=== PATIENT | female | born 1990 | race Caucasian/White ===

== ENCOUNTER → 2016-05-25 | Outpatient (CLI) | payer MEDICAID ==
--- NOTE | 2016-05-26 09:21 | ECHOF ---
Referral Reason:R00.2 Palpitations MEASUREMENTS -------- HEIGHT: 165.1 cm WEIGHT: 57.6 kg BP: 119/66 RVIDd: 2.6 cm (< 3.3) IVSd: 0.8 cm (0.6 - 1.1) LVIDd: 3.7 cm (3.9 - 5.3) LVPWd: 0.6 cm (0.6 - 1.1) IVSs: 1.1 cm LVIDs: 2.3 cm LVPWs: 1.0 cm LA Diam: 2.3 cm (2.7 - 3.8) LAESV Index (A-L): 16.88 ml/m Ao Diam: 3.0 cm (2.0 - 3.7) AV Cusp: 1.3 cm (1.5 - 2.6) LA Diam: 1.6 cm (2.7 - 3.8) MV EXCURSION: 21.150 mm (> 18.000) MV EF SLOPE: 216 mm/s (70 - 150) EPSS: 0.3 cm MV E David: 1.07 m/s MV DecT: 223 ms MV A David: 0.55 m/s MV E/A Ratio: 1.97 RAP: 5.00 mmHg RVSP: 17.37 mmHg FINDINGS -------- Sinus rhythm. This was a technically good study. Left ventricular wall thickness is normal. Overall left ventricular systolic function is normal with, an EF between 55 - 60 %. The right ventricle is normal in size. Normal LA size by volume 22+/-6 ml/m2. The right atrium is normal in size. Aortic valve is trileaflet and is mildly thickened. The mitral valve leaflets are mildly thickened. Mild mitral annular calcification present. Mild tricuspid regurgitation present. Right ventricular systolic pressure is normal at < 35 mmHg. Pulmonic valve appears structurally normal. The aortic root size is normal. Normal inferior vena cava with normal inspiratory collapse consistent with estimated right atrial pressure of 5 mmHg. There is no pericardial effusion. CONCLUSIONS -------- 1. Sinus rhythm. 2. Mild mitral annular calcification present. 3. Mild tricuspid regurgitation present. 4. Right ventricular systolic pressure is normal at < 35 mmHg. 5. Pulmonic valve appears structurally normal. 6. The aortic root size is normal. 7. Normal inferior vena cava with normal inspiratory collapse consistent with estimated right atrial pressure of 5 mmHg. 8. There is no pericardial effusion. 9. This was a technically good study. 10. Left ventricular wall thickness is normal. 11. Overall left ventricular systolic function is normal with, an EF between 55 - 60 %. 12. The right ventricle is normal in size. 13. Normal LA size by volume 22+/-6 ml/m2. 14. The right atrium is normal in size. 15. Aortic valve is trileaflet and is mildly thickened. 16. The mitral valve leaflets are mildly thickened. LEATHER COATER: Josephine Moss RDCS
== END ==
LOC: RADECHMAIN 11:28
PROVIDERS: ATTEND Family Medicine
DX: R00.2 Palpitations (principal)
CPT/HCPCS: 93306

== ENCOUNTER → 2017-06-07 | Outpatient (CLI) | payer MEDICAID ==
--- NOTE | 2017-06-07 15:32 | CONS ---
CONSULTATION This is a consultation note for sleep paralysis. This is a very pleasant 26-year-old female patient, who has been experiencing episodes of sleep paralysis. This episode started the beginning of the year and she was having approximately 1 or 2 episodes a week. The frequency has been varying. Initially were quite frequent and it seems that her episodes of sleep paralysis have been improving and becoming less frequent. Note that the patient is a very stressful and busy schedule. She is working 2 jobs. She started working 2 jobs as of January of 2017. She works midnights at [employer] 2 days a week and she also works daytime job at the [employer] 2 days a week. On the days that she does night work she goes to bed around 8 in the morning and she gets up at 3 to 4 pm and on the days that she works days she goes to bed around 9:00 pm and she wakes up at 9 a.m. in the morning. No history of anxiety. No history of panic attacks. No history of depression. No history of substance abuse. No hallucinations. No cataplexy. No hypersomnia or sleepiness during the day and she is able to perform activities of day- to-day life without having to fall asleep. The patient denies having any vivid dreams. However the patient denies having any vivid dreams. She has no snoring. She has no other personal or family history of narcolepsy. Typically these episodes happen in the middle of the night as the patient wakes up, and she is unable to move. These are short episodes lasting somewhere between 20 seconds up to a minute or 2. She tried to go back to sleep and when she wakes up she is able to move her body parts. No history of any panic disorder. No history of any PTSD. No other complaints otherwise for now. She does have significant amount of mental stress and obviously her sleep schedule has been quite irregular working at 2 separate jobs as mentioned. Note that the patient described these episodes to be quite scary. Initially she was very much frightened during these episodes knowing that she was powerlessness and she was unable to move and for now she has been able to cope with these episodes and as she understands the situation she is feeling more comfortable and less stressed. As mentioned there is no associated panic disorder. PAST MEDICAL HISTORY: Negative. PAST SURGICAL HISTORY: Negative. DRUG ALLERGIES: Not known. MEDICATIONS: None. SOCIAL HISTORY: Nonsmoker. No history of alcohol. No history of IV drugs. FAMILY HISTORY: The patient lives with significant other. She takes care of her 2-year-old child at home. She works 2 jobs. REVIEW OF SYSTEMS: 12-point review of system was done. Positive findings are mentioned above in the history of present illness. No history of any grinding of the teeth. No restlessness in lower extremities. No sleepwalking. No anxiety or panic attacks. No depression. No heartburn. No waking up in the middle of night choking or gasping for air. No excessive fatigue or sleepiness during the day. No snoring. BP is 131/65, pulse 84, respirations 16, temperature 98, saturation 98% on room air. BMI 22.2, weight is 134, height is 5 feet 5 inches and neck size 13.5 inches. GENERAL APPEARANCE: Calm comfortable. Head is atraumatic, normocephalic. NECK: Supple. There is no JVD. No goiter or neck masses. LUNGS: Clear to auscultation. HEART: Sounds regular rhythm. Normal S1, S2. No S3. No murmurs. ABDOMEN: Soft, nontender. EXTREMITIES: No edema. No cyanosis or clubbing. IMPRESSION: Isolated sleep paralysis. The patient is having episodes of sleep paralysis, at least once a month but less than once a week. The patient reports inability to move and speak during these episodes without any significant hallucinations. These episodes have been extremely distressing initially and they are becoming gradually less stressful and less frequent. No history of underlying psychiatric disorder. No indication for underlying obstructive sleep apnea or narcolepsy as the patient has no hallucinations, cataplexy or increased daytime hypersomnolence or sleepiness. These episodes of sleep paralysis are most likely related to the patient's insufficient sleep and irregular sleep cycle/irregular sleep schedule as the patient is sleeping in various hours due to her jobs where she has to work night shifts and morning shifts. PLAN: No obvious comorbidities associated with sleep paralysis in this patient. Doubt narcolepsy or anxiety or panic or any other psychiatric disorder. Furthermore there was no reported substance abuse. The patient needs to regulate the sleep schedule. Obviously working 2 different jobs at different schedules will exacerbate sleep paralysis and this needs to be dealt with and the patient also needs to implement good sleep hygiene measures. No need for any medication treatment for now as long as the episodes are improving with sleep hygiene measures. One consideration is to add a SSRI or tricyclic antidepressant if these episodes become quite frequent in the future. Appropriate literature was given. The patient was reassured. No need for any polysomnogram. We will continue to follow in the future if needed. MMODL / IJN: [id number] /
== END | disposition home or self-care (01) ==
LOC: SLEEP 13:31
PROVIDERS: ATTEND Internal Medicine Critical Care Medicine
DX: G47.53 Recurrent isolated sleep paralysis (principal)
CPT/HCPCS: 99211

== ENCOUNTER → 2018-02-24 | Outpatient (CLI) | payer MEDICAID | END | disposition home or self-care (01) | LOC: LABWHC1 09:34 | PROVIDERS: ATTEND Obstetrics & Gynecology | DX: O26.899 Other specified pregnancy related conditions, unspecified trimester (principal); Z3A.00 Weeks of gestation of pregnancy not specified | CPT/HCPCS: 36415; 82239 ==

== ENCOUNTER → 2018-03-15 | Outpatient (CLI) | payer MEDICAID | LOC: LABWHC1 09:49 | PROVIDERS: ATTEND Obstetrics & Gynecology | DX: O26.613 Liver and biliary tract disorders in pregnancy, third trimester (principal); Z3A.00 Weeks of gestation of pregnancy not specified | CPT/HCPCS: 36415; 82239 ==

== ENCOUNTER 2018-03-23 16:00 | Outpatient (CLI) | payer MEDICAID ==
[2018-03-23] MEDS ORDERED: BETAMET ACET-BETAMETH SOD PHOS 6 MG/ML VIAL IM SCH (16:15)
[2018-03-23 17:35] VITALS: BP 121/74; PULSE 85; RESP 16
== END 2018-03-23 16:32 | disposition home or self-care (01) ==
LOC: FBPOP 16:00
PROVIDERS: ATTEND Obstetrics & Gynecology
DX: O60.03 Preterm labor without delivery, third trimester (principal); O26.613 Liver and biliary tract disorders in pregnancy, third trimester; K83.1 Obstruction of bile duct; Z3A.35 35 weeks gestation of pregnancy
CPT/HCPCS: 59025; 96372; J0702

== ENCOUNTER 2018-03-23 21:00 | Inpatient (IN) | payer MEDICAID ==
[2018-03-24] MEDS ORDERED: METHYLERGONOVINE 0.2 MG/ML 1 ML AMP IM PRN (00:22)
[2018-03-24] MEDS ORDERED: LIDOCAINE 0.5% (PF) 5 MG/ML (50 ML SDV) SQ PRN (00:22)
[2018-03-24] MEDS ORDERED: CARBOPROST TROMETHAMINE 250 MCG/ML 1 ML AMP IM PRN (00:22)
[2018-03-24] MEDS ORDERED: TERBUTALINE 1 MG/ML VIAL SQ PRN (00:22)
[2018-03-24] MEDS ORDERED: OXYTOCIN 10 UNIT/ML 1 ML VIAL IM PRN (00:22)
[2018-03-24] MEDS ORDERED: BUTORPHANOL 1 MG/ML 1 ML VIAL IV PRN (00:30)
[2018-03-24 03:26] VITALS: BMI 25.2
[2018-03-24] MEDS: LACTATED RINGERS 1,000 ML IV SCH ×3 (03:32→07:36)
[2018-03-24] MEDS: OXYTOCIN 20 UNITS/1000 ML NS 1,000 ML IV SCH ×2 (03:32→06:35)
[2018-03-24 06:37] LABS: Basophils % (A) 0 %; Eosinophils # (A) 0.1 k/uL (0-0.7); Eosinophils % (A) 1 %; HCT 34.4 % (34.0-46.0); HGB 11.4 gm/dL (11.4-16.0); Lymphocytes # (A) 1.1 k/uL (1.0-4.8); Lymphocytes % (A) 11 %; MCH 29.2 pg (25.0-35.0); MCHC 33.2 g/dL (31.0-37.0); Monocytes # (A) 0.5 k/uL (0-1.0); Monocytes % (A) 5 %; Neutrophils # (A) 8.1 k/uL (1.3-7.7); Neutrophils % (A) 82 %; Platelet Count 231 k/uL (150-450); WBC 9.8 k/uL (3.8-10.6)
--- NOTE | 2018-03-24 07:45 | P.HPOB ---
History of Present Illness H&P Date: 03/24/18 This is a 27-year-old white female 2 para 1001 EDC 04/21/2018 at 36 weeks' gestation. Patient presents today for induction for cholestasis of . She was actually seen in the triage area last night, had advanced cervical dilatation of 5-6 cm, and therefore was admitted. She had irregular contractions through the night. Oxytocin was started this morning and she is in early active labor. heart tones are reassuring, in the 140s baseline with frequent accelerations consistent with reactive NST. Biophysical profile in the office 2 days ago was 10/10. Reactive NST last night and currently. Obstetric history is significant for blood type B negative, group B strep cultures negative. Gonorrhea and chlamydia cultures, Pap smear urine culture, hepatitis B surface antigen all negative. Rubella status immune. One-hour Glucola 128. History significant for fasting bile acids of 20, repeat 76. Discussion with Dr. Cook at [facility] was performed, suggestion was delivery at 36 weeks secondary to the increased risk of intrauterine demise. Past medical history is significant for benign palpitations. Past surgical history colposcopy 2014 for low-grade RAYMUNDO. Current medications vitamins daily, Actigall 300 mg twice daily. Family history significant for prostate cancer, diabetes, hyperlipidemia, and hypothyroidism. Social history patient is , her Jonathan is present. 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 She has never been a smoker. She denies alcohol or drug use. On exam this is a pleasant white female, she is 5 foot 4 inches, 152 pounds, blood pressure 136/77, patient is afebrile. The general physical exam is within normal limits. Cervix is 7 cm the time of this dictation, 80% effaced, - 1 station, vertex presentation. Artificial amniorrhexis reveals clear fluid. heart rate is reassuring, 140s baseline with frequent accelerations, category 1. Uterine contractions are occurring approximately every 3-4 minutes apart of moderate intensity. Impression: 36 week intrauterine , active hepatic cholestasis of with recommendation from maternal medicine for delivery at 36 weeks. Betamethasone received 2. All signs at this time reassuring. Plan continue close maternal and surveillance. Epidural is being placed at this time per patient's request. Anticipate normal spontaneous vaginal delivery. Review of Systems Constitutional: Reports as per HPI Past Medical History Past Medical History: No Reported History History of Any Multi-Drug Resistant Organisms: None Reported Past Surgical History: No Surgical Hx Reported Additional Past Surgical History / Comment(s): [place] Teeth Extraction Past Anesthesia/Blood Transfusion Reactions: No Reported Reaction Past Psychological History: No Psychological Hx Reported Smoking Status: Never smoker Past Alcohol Use History: None Reported Past Drug Use History: None Reported - Past Family History Mother History Unknown: Yes Family Medical History: Thyroid Disorder Additional Family Medical History / Comment(s): Hypothyroid-Had part of her thyroid removed Medications and Allergies Home Medications Medication Instructions Recorded Confirmed Type Vit No.124/Iron/Folic 1 each PO DAILY 10/28/14 03/23/18 History [ Vitamin Tablet] Ranitidine HCl [Zantac] 150 mg PO BID 10/28/14 03/23/18 History Ursodiol [Actigall] 300 mg PO BID 03/23/18 03/23/18 History Allergies Allergy/AdvReac Type Severity Reaction Status Date / Time No Known Allergies Allergy Verified 03/23/18 16:05 Exam Vital Signs Temp Pulse Resp BP Pulse Ox 03/24/18 02:30 97.8 F 77 16 125/85 99 03/23/18 21:25 99.4 F 91 16 136/77 99 Intake and Output 03/23/18 03/24/18 03/24/18 22:59 06:59 14:59 Other: # Voids 2 Weight 68.946 kg see dictation Results Result Diagrams: 03/24/18 06:20 Abnormal Lab Results - Last 24 Hours (Table) 03/24/18 Range/Units 06:20 Neutrophils # 8.1 H (1.3-7.7) k/uL Assessment and Plan Assessment: 36 week intrauterine , betamethasone received 2, early active labor. Cholestasis of noted, with strong recommendation from maternal medicine for delivery at 36 weeks. All signs currently reassuring, clear fluid , reactive NST. Plan: Continue close maternal and surveillance. Epidural being placed per patient's request at this time. Anticipate normal spontaneous vaginal delivery. nursery and pediatricians aware. Time with Patient: Greater than 30
[2018-03-24] MEDS ORDERED: ROPIVACAINE 100 MG, fentaNYL (PF) 200 MCG in SODIUM CHLORIDE 0.9% 76 ML EPIDURAL ONE (09:52)
[2018-03-24] MEDS ORDERED: SILVER NITRATE APPLICATOR 1 EACH STICK..EA. TOPICAL STA (10:20)
[2018-03-24] MEDS ORDERED: WITCH HAZEL 1 EACH MED..PAD TOPICAL PRN (10:58)
[2018-03-24] MEDS ORDERED: diphenhydrAMINE 50 MG/ML 1 ML VIAL IVP PRN ×2 (10:58)
[2018-03-24] MEDS ORDERED: LANOLIN CREAM 5 GM TUBE TOPICAL PRN (10:58)
[2018-03-24] MEDS ORDERED: diphenhydrAMINE 50 MG CAP PO PRN (10:58)
[2018-03-24] MEDS ORDERED: ZOLPIDEM 5 MG TAB PO PRN (10:58)
[2018-03-24] MEDS ORDERED: BENZOCAINE/MENTHOL SPRAY 1 GM/SPRAY AEROSOL TOPICAL PRN (10:58)
[2018-03-24] MEDS ORDERED: HYDROCORTISONE 2.5% RECTAL CREAM 30 GM TUBE RECTAL PRN (10:58)
[2018-03-24] MEDS ORDERED: diphenhydrAMINE ELIXIR 25 MG/10 ML CUP PO PRN (10:58)
[2018-03-24] MEDS ORDERED: SIMETHICONE 80 MG CHEWABLE PO PRN (10:58)
[2018-03-24] MEDS ORDERED: diphenhydrAMINE 25 MG CAP PO PRN (10:58)
--- NOTE | 2018-03-24 10:58 | P.PROBDLV ---
Vaginal Delivery Note - . Vaginal Delivery Note: This is a 27-year-old white female 2 para 1001 EDC 04/21/2018 at 36 weeks' gestation. Patient's has been followed carefully for cholestasis of . Maternal medicine at [facility] was consulted, and recommendation was made for delivery at 36 weeks. Cervix was favorable. Betamethasone received 2. Please see dictated history and physical for details. Patient was admitted, artificial amniorrhexis revealed clear fluid. Oxytocin was started and titrated per hospital protocol. Epidural was placed per her request. She became completely dilated at 0955 hours and began the second stage of labor at that time. Maternal expulsive efforts were excellent. Perineal body was prepped and draped in the usual sterile fashion. Infant's head delivered occiput anterior and the restituted accordingly. There was a nuchal cord 1 that was reduced on the perineal body. Patient was officially delivered of a liveborn female at 1002 hours. Umbilical cord was doubly clamped and ligated, she was handed to waiting nurses for evaluation where scores of 8 and 9 at one and 5 minutes respectively were given. Cord blood was sent to the lab for Rh- status. The placenta delivered spontaneously, it was inspected and noted to be intact with trivascular cord at 1005 hours. At this time inspection of the cervix, vagina, perineum, periurethral, and perirectal areas revealed no lacerations and no defects. Fundus is firm and in the midline, symmetric and 18 week size upon completion of delivery. Total estimated blood loss 300 mL's. weighs 5 pounds 12.6 ounces or 2625 g. All sponge needle and enhancement counts are correct at the end of the procedure. Patient and her family are allowed to begin the bonding experience in the LDR.
[2018-03-24] MEDS: IBUPROFEN 600 MG TAB PO PRN ×2 (11:13→19:17)
[2018-03-24] MEDS: ACETAMINOPHEN TAB 325 MG TAB PO PRN ×2 (16:09→23:19)
[2018-03-24] MEDS ORDERED: Rhogam IMMUNE GLOBULIN 1,500 UNIT/1 ML IM ONE (17:47)
[2018-03-24] MEDS: SENNOSIDES-DOCUSATE SODIUM 1 EACH TAB PO SCH (19:17)
[2018-03-25] MEDS: IBUPROFEN 600 MG TAB PO PRN ×2 (02:47→08:20)
[2018-03-25] MEDS: ACETAMINOPHEN TAB 325 MG TAB PO PRN (05:17)
[2018-03-25] MEDS: SENNOSIDES-DOCUSATE SODIUM 1 EACH TAB PO SCH (08:20)
[2018-03-25 08:39] VITALS: BP 124/65; PULSE 70; RESP 15; TEMP 97.7
--- NOTE | 2018-03-25 13:04 | P.DS ---
Providers Date of admission: 03/23/18 22:12 Expected date of discharge: 03/25/18 Attending physician: Radha Mckeon [facility] Course: This is a 27-year-old white female 2 para 1001 EDC 04/21/2018 at 36 weeks' gestation. Patient's was remarkable for cholestasis of . Consultation with maternal- medicine at [facility] was performed, recommendation was for delivery at 36 weeks. Patient's cervix was favorable, in fact she presented in early active labor. Please see my dictated history and physical for details. Artificial amniorrhexis revealed clear fluid. Epidural was placed per her request. She went on to deliver swiftly a liveborn female infant with scores of 8 and 9 at one and 5 minutes respectively. There was a nuchal cord 1 that was reduced. An estimated blood loss was recorded of 300 mL's. weighed 5 pounds 12.6 ounces or 2625 g. Please see my dictated delivery note for details. This morning the patient is doing well. The baby has been cleared for discharge by transit department clerk. The patient has been voiding, ambulating, passing flatus without difficulty. Her itching is still present, but improving. Extremities are negative for edema. Chest is clear in all barron. Breasts are not engorged. Breast-feeding is going well. Patient is being discharged home in good condition. She will follow-up with me in the office in 6 weeks. I have reminded her no intercourse, tampons or douching. She will continue to take vitamins daily. She may use Benadryl as needed for any residual itching. Uterine options for contraception and we will review this further in the office. Patient Condition at Discharge: Good Plan - Discharge Summary Discharge Rx Participant: No New Discharge Prescriptions: No Action Ranitidine HCl [Zantac] 150 mg PO BID Vit No.124/Iron/Folic [ Vitamin Tablet] 1 each PO DAILY Ursodiol [Actigall] 300 mg PO BID Discharge Medication List Vit No.124/Iron/Folic [ Vitamin Tablet] 1 each PO DAILY [History] Ranitidine HCl [Zantac] 150 mg PO BID 10/28/14 [History] Ursodiol [Actigall] 300 mg PO BID 03/23/18 [History] Follow up Appointment(s)/Referral(s): Radha Mckeon MD [Primary Care Provider] - 6 Weeks Patient Instructions/Handouts: Vaginal Delivery (DC)
== END 2018-03-25 13:14 | disposition home or self-care (01) | DRG 805 ==
LOC: FBPOP 21:00 → 4FBP 22:12
PROVIDERS: ADMIT Obstetrics & Gynecology; ATTEND Obstetrics & Gynecology
PROC: 10E0XZZ Delivery of Products of Conception, External Approach (ICD-10-PCS; principal; 2018-03-24)
PROC: 10907ZC Drainage of Amniotic Fluid, Therapeutic from Products of Conception, Via Natural or Artificial Opening (ICD-10-PCS; 2018-03-24)
PROC: 3E033VJ Introduction of Other Hormone into Peripheral Vein, Percutaneous Approach (ICD-10-PCS; 2018-03-24)
PROC: 00HU33Z Insertion of Infusion Device into Spinal Canal, Percutaneous Approach (ICD-10-PCS; 2018-03-24)
PROC: 3E0R3BZ Introduction of Anesthetic Agent into Spinal Canal, Percutaneous Approach (ICD-10-PCS; 2018-03-24)
DX: O26.62 Liver and biliary tract disorders in childbirth (principal); K83.1 Obstruction of bile duct; Z37.0 Single live birth; O69.81X0 Labor and delivery complicated by cord around neck, without compression, not applicable or unspecified; O26.893 Other specified pregnancy related conditions, third trimester; Z67.91 Unspecified blood type, Rh negative; Z3A.36 36 weeks gestation of pregnancy; Z79.899 Other long term (current) drug therapy; Z83.3 Family history of diabetes mellitus; Z80.42 Family history of malignant neoplasm of prostate; Z83.49 Family history of other endocrine, nutritional and metabolic diseases
CPT/HCPCS: 59025; 85025; 85461; 86850; 86900; 86901; 88307; 99213

== ENCOUNTER → 2018-03-23 | Outpatient (CLI) | payer MEDICAID | END | disposition home or self-care (01) | LOC: FBPOP 20:55 | PROVIDERS: ATTEND Obstetrics & Gynecology | DX: Z53.9 Procedure and treatment not carried out, unspecified reason (principal) ==

== ENCOUNTER → 2018-06-29 | Outpatient (CLI) | payer MEDICAID ==
[2018-06-29 10:58] LABS: Basophils % (A) 0 %; Eosinophils # (A) 0.6 k/uL (0-0.7); Eosinophils % (A) 7 %; HCT 39.6 % (34.0-46.0); HGB 12.8 gm/dL (11.4-16.0); Lymphocytes # (A) 1.2 k/uL (1.0-4.8); Lymphocytes % (A) 13 %; MCH 28.9 pg (25.0-35.0); MCHC 32.4 g/dL (31.0-37.0); MCV 89.2 fL (80.0-100.0); Mean Platelet Volume 6.8; Monocytes # (A) 0.5 k/uL (0-1.0); Monocytes % (A) 6 %; Neutrophils # (A) 6.8 k/uL (1.3-7.7); Neutrophils % (A) 74 %; Platelet Count 265 k/uL (150-450); RBC 4.44 m/uL (3.80-5.40); RDW 12.6 % (11.5-15.5); WBC 9.2 k/uL (3.8-10.6)
[2018-06-29 17:19] LABS: ALT 23 U/L (8-44); AST 18 U/L (13-35); Albumin/Globulin Ratio 2.56 (1.60-3.17); Alkaline Phosphatase 64 U/L (41-126); Calcium 9.6 mg/dL (8.7-10.3); Carbon Dioxide 25.7 mmol/L (21.6-31.8); Chloride 108 mmol/L (96-109); Cholesterol 196 mg/dL (0-200); Globulin 1.8 g/dL (1.6-3.3); Glucose 90 mg/dL (70-110); Potassium 4.2 mmol/L (3.5-5.5); Sodium 140 mmol/L (135-145); Total Bilirubin 0.6 mg/dL (0.3-1.2); Total Protein 6.4 g/dL (6.2-8.2); Triglycerides <50.0 mg/dL (0.0-149.0); VLDL Calculation 9.98 mg/dL (5.00-40.00)
[2018-06-29 17:53] LABS: Immunoglobulin E 3.95 IU/mL (0.00-114.00)
== END ==
LOC: LABWHC1 09:37
PROVIDERS: ATTEND Nurse Practitioner Adult Health
DX: Z00.00 Encounter for general adult medical examination without abnormal findings (principal); K21.9 Gastro-esophageal reflux disease without esophagitis
CPT/HCPCS: 36415; 80053; 80061; 82785; 83516; 84439; 84443; 85025

== ENCOUNTER → 2018-07-14 | Outpatient (CLI) | payer MEDICAID ==
--- NOTE | 2018-07-14 10:52 | US ---
EXAMINATION TYPE: US abdomen complete DATE OF EXAM: 07/14/2018 COMPARISON: NONE CLINICAL HISTORY: R10.11 RUQ Pain. Epigastric pain after eating for the past 6 to 12 weeks EXAM MEASUREMENTS: Liver Length: 14.1 cm Gallbladder Wall: 0.2 cm CBD: 0.3 cm Spleen: 12.0 cm Right Kidney: 11.4 x 4.6 x 5.1 cm Left Kidney: 11.1 x 5.8 x 4.6 cm Pancreas: wnl Liver: wnl Gallbladder: wnl Evidence for sonographic Douglas's sign: no CBD: wnl Spleen: wnl Right Kidney: wnl Left Kidney: wnl Upper IVC: wnl Abd Aorta: wnl IMPRESSION: 1. Normal abdomen ultrasound
== END | disposition home or self-care (01) ==
LOC: RADUSWWP 07:28
PROVIDERS: ATTEND Family Medicine
DX: R10.11 Right upper quadrant pain (principal)
CPT/HCPCS: 76700

== ENCOUNTER → 2018-09-28 | Outpatient (CLI) | payer MEDICAID ==
--- NOTE | 2018-09-28 15:10 | NM ---
EXAMINATION TYPE: NM hepatobiliary w EF DATE OF EXAM: 09/28/2018 COMPARISON: Abdominal CT from July 14, 2018 HISTORY: Right upper quadrant pain for water. Additional symptoms of epigastric pain and heartburn an d reflux-like symptoms per patient. TECHNIQUE: After the intravenous administration of 4.8 mCi Tc 99m Mebrofenin hepatobiliary scintigrap hy is performed. Immediate images post injection. FINDINGS: There is satisfactory initial accumulation of tracer by the liver. The gallbladder is visualized wit hin 60 minutes. The small bowel activity is noted within 20 minutes. At one hour 8 ounces of oral e nsure plus is given to mimic CCK and gallbladder ejection fraction is calculated at 88 %, not diminis hed from the normal range. Therefore there is no scintigraphic evidence of cystic or common bile jose roberto t obstruction to suggest acute cholecystitis. IMPRESSION: Ejection fraction not diminished from the normal range.
== END | disposition home or self-care (01) ==
LOC: RADNMMAIN 12:43
PROVIDERS: ATTEND Family Medicine
DX: R10.11 Right upper quadrant pain (principal)
CPT/HCPCS: 78226; A9537

== ENCOUNTER → 2018-11-24 | Outpatient (CLI) | payer MEDICAID ==
--- NOTE | 2018-12-11 18:52 | P.PN ---
Progress Note - Text Progress Note Date: 12/11/18 This is a report on the 14 day event monitor. Baseline rhythm is sinus. Patient had episodes of sinus tachycardia. Patient had occasional single PVCs. Patient complained of palpitations and skipped a beat with strong correlation with PVCs. No sustained arrhythmias were detected. Final impression #1. Baseline rhythm is sinus episodes of sinus tachycardia #2. Occasional PVCs without any sustained arrhythmias. #3. Patient's symptoms of palpitations correlated strongly with PVCs.
--- NOTE | 2018-12-12 11:15 | EM ---
This is a report on the 14 day event monitor. Baseline rhythm is sinus. Patient had episodes of sinus tachycardia. Patient had occasional single PVCs. Patient complained of palpitations and skipped a beat with strong correlation with PVCs. No sustained arrhythmias were detected. Final impression #1. Baseline rhythm is sinus episodes of sinus tachycardia #2. Occasional PVCs without any sustained arrhythmias. #3. Patient's symptoms of palpitations correlated strongly with PVCs. [facility]
== END | disposition home or self-care (01) ==
LOC: RADECHMAIN 12:06
PROVIDERS: ATTEND Family Medicine
DX: I48.0 Paroxysmal atrial fibrillation (principal)
CPT/HCPCS: 93270

== ENCOUNTER → 2019-01-09 | Outpatient (CLI) | payer MEDICAID ==
--- NOTE | 2019-01-09 14:52 | US ---
EXAMINATION TYPE: US thyroid st tissue head/neck DATE OF EXAM: 01/09/2019 COMPARISON: NONE CLINICAL HISTORY: E04.9 Thyroid nodule. Enlarged thyroid per patient's physician GLAND SIZE: Right Lobe: 6.4 x 2.1 x 2.0 cm Overall Parenchyma: heterogenous Left Lobe: 5.7 x 2.0 x 1.5 cm Overall Parenchyma: heterogeneous Isthmus Thickness: 0.3 cm NODULES RIGHT: # of nodules measured on right: 0 LEFT: # of nodules measured on left: 0 ISTHMUS: # of nodules measured in the isthmus: 0 Bilateral neck scanned, no evidence of lymphadenopathy. Enlarged heterogeneous hypervascular gland without any sizable nodules seen at time. Diffuse heteroge neity throughout the gland can be seen as sequela of chronic thyroiditis or lymphocytic infiltration. IMPRESSION: Diffusely enlarged and hypervascular thyroid gland, consider acute on chronic thyroiditis. This can a lso be seen in lymphocytic infiltration.
== END | disposition home or self-care (01) ==
LOC: RADUSWWP 14:10
PROVIDERS: ATTEND Family Medicine
DX: E04.1 Nontoxic single thyroid nodule (principal); E06.5 Other chronic thyroiditis
CPT/HCPCS: 76536

== ENCOUNTER 2019-05-05 | Emergency (ER) | payer MEDICAID | END 2019-05-05 17:27 | disposition home or self-care (01) | CPT/HCPCS: 36415; 71046; 85379; 93005; 99285 ==

== ENCOUNTER → 2023-04-29 | Outpatient (CLI) | payer OTHER ==
[2023-04-29 19:05] LABS: ALT 28 U/L (8-44); AST 17 U/L (13-35); Albumin 4.5 g/dL (3.8-4.9); Albumin/Globulin Ratio 1.88 Ratio (1.60-3.17); Alkaline Phosphatase 46 U/L (41-126); BUN/Creat Ratio 19.78 Ratio (12.00-20.00); Blood Urea Nitrogen 17.8 mg/dL (9.0-27.0); Calcium 9.7 mg/dL (8.7-10.3); Carbon Dioxide 24.4 mmol/L (21.6-31.8); Chloride 107 mmol/L (96-109); Globulin 2.4 g/dL (1.6-3.3); Glucose 95 mg/dL (70-110); Potassium 4.3 mmol/L (3.5-5.5); Sodium 141 mmol/L (135-145); Total Bilirubin 0.4 mg/dL (0.3-1.2); Total Protein 6.9 g/dL (6.2-8.2)
== END | disposition home or self-care (01) ==
LOC: LABWHC1 08:23
DX: I49.3 Ventricular premature depolarization (principal); R00.2 Palpitations
CPT/HCPCS: 36415; 80053; 84443

== ENCOUNTER 2024-01-06 09:21 | Day surgery (SDC) | payer OTHER ==
[2024-01-04 16:20] VITALS: BMI 25.8
[2024-01-06] MEDS: LACTATED RINGERS 1,000 ML IV SCH (10:22)
[2024-01-06] MEDS: IV FLUID CONTINUATION 1,000 ML IV ONE (10:23)
[2024-01-06 10:25] VITALS: TEMP 98.3
[2024-01-06] MEDS ORDERED: PROPOFOL 10 MG/ML 20 ML VIAL IV ONE (11:01)
[2024-01-06] MEDS ORDERED: LIDOCAINE 1% INJ 10MG/ML (20 ML MDV) ONE (11:01)
--- NOTE | 2024-01-06 11:10 | P.PCN ---
Date of Procedure: 01/06/24 Procedure(s) Performed: BRIEF HISTORY: Patient is a 33-year-old, pleasant, white female scheduled for an upper endoscopy as a part of evaluation of epigastric pain for the last few months duration.. PROCEDURE PERFORMED: Esophagogastroduodenoscopy with biopsy PREOPERATIVE DIAGNOSIS: Chronic epigastric pain. IV sedation per anesthesia. PROCEDURE: After informed consent was obtained, the patient was brought into the endoscopy unit. IV sedation was administered by Anesthesia under continuous monitoring. Initially the Olympus GIF-140 video endoscope was inserted into the mouth. Esophagus intubated without any difficulty. It was gradually advanced into the stomach and duodenum and carefully examined. The bulb and the second part of the duodenum appeared normal. The scope at this time was withdrawn to the stomach, adequately insufflated with air, and upon careful examination, mucosa of the antrum, had mild gastritis and biopsies were done for this area. Mucosa of the body, cardia and the fundus appeared normal. Small hiatal hernia noted. The scope was then withdrawn into the esophagus. The GE junction was located at 35 cm from the incisors. The esophagus appeared normal. There were no erosions or ulcerations seen and the patient tolerated the procedure well. IMPRESSION: 1. Small hiatal hernia. 2. Mild antral gastritis. RECOMMENDATIONS: The findings of this examination were discussed with the patient as well as her family. She was advised to follow with the biopsy results. Continue with omeprazole 20 mg daily and follow antireflux measures. Follow-up in the office in 3 to 4 weeks..
[2024-01-06 11:40] VITALS: BP 109/74; PULSE 82; RESP 20
== END 2024-01-06 11:47 | disposition home or self-care (01) ==
LOC: ORWHC2ENDO 09:21
PROVIDERS: ATTEND Internal Medicine Gastroenterology
DX: K29.50 Unspecified chronic gastritis without bleeding (principal); K44.9 Diaphragmatic hernia without obstruction or gangrene; G89.29 Other chronic pain; K21.9 Gastro-esophageal reflux disease without esophagitis; Z79.899 Other long term (current) drug therapy; Z98.890 Other specified postprocedural states
CPT/HCPCS: 81025; 88305; 43239; J2003; J2704